=== PATIENT | female | born 1970 | race Caucasian/White ===

== ENCOUNTER → 2018-01-08 16:29 | Outpatient (CLI) | payer OTHER, SELFPAY | PROVIDERS: Family Provider Obstetrics & Gynecology Gynecology; PCP Obstetrics & Gynecology Gynecology; Visit Provider Nurse Practitioner Adult Health | DX: R82.90 Unspecified abnormal findings in urine (principal) | CPT/HCPCS: 87086; 87088 ==

== ENCOUNTER → 2018-01-09 16:31 | Outpatient (CLI) | payer OTHER, SELFPAY ==
--- NOTE | 2018-01-09 16:39 | US_ITS ---
STUDY: RENAL ULTRASOUND - COMPLETE REASON FOR EXAM: Female, 47 years old. Incomplete voiding TECHNIQUE: Ultrasound evaluation of the kidneys was performed with real-time and static badillo-scale imaging. COMPARISON: None. FINDINGS: RIGHT KIDNEY: Normal location of the right kidney, which is normal in size. The right kidney measures 10.5 x 5.4 x 4.5 cm. There is a normal cortex of the right kidney. The renal cortex measures 1.5 cm. There is no right renal mass or cyst. There are no right renal calculi. There is no right hydronephrosis. DISTAL RIGHT URETER: There is non-visualization of the distal right ureter. There is no demonstrated right ureterovesical junction calculus. There is a visualized right ureteral jet. LEFT KIDNEY: Normal location of the left kidney, which is normal in size. The left kidney measures 11.4 x 5.1 x 5.4 cm. There is a normal cortex of the left kidney. The renal cortex measures 1.3 cm. There is no left renal mass or cyst. There is a 6 mm calculus within the midpole of the left kidney. There is no left hydronephrosis. DISTAL LEFT URETER: There is non-visualization of the distal left ureter. There is no demonstrated left ureterovesical junction calculus. There is a visualized left ureteral jet. AORTA: Not imaged. I.V.C.: Not imaged. BLADDER: The distended urinary bladder has a volume of 102 ml. The empty urinary bladder has a volume of 41 ml. There is a normal wall thickness of the distended urinary bladder. There is no demonstrated mass within the urinary bladder. There are no demonstrated bladder calculi. US/Kidney and Bladder IMPRESSION: Small nonobstructing left renal calculus. Small post void residual of 41 mL. Electronically Signed: Kevon lOiva DO at 11:48 EDT Tel , Service support ,
== END ==
PROVIDERS: Family Provider Obstetrics & Gynecology Gynecology; PCP Obstetrics & Gynecology Gynecology; Visit Provider Nurse Practitioner Adult Health
DX: N20.0 Calculus of kidney (principal); N39.43 Post-void dribbling
CPT/HCPCS: 76770

== ENCOUNTER 2020-06-17 11:52 | Emergency (ER) | payer OTHER, SELFPAY ==
[2020-06-17 11:54] VITALS: BP 151/101; PULSE 73; RESP 16; TEMP 36.3; O2SAT 99; BMI 24.1
--- NOTE | 2020-06-17 11:57 | EKG12_ITS ---
Test Reason : CP Blood Pressure : / mmHG Vent. Rate : 085 BPM Atrial Rate : 085 BPM P-R Int : 152 ms QRS Dur : 086 ms QT Int : 406 ms P-R-T Axes : 067 056 042 degrees QTc Int : 483 ms Normal sinus rhythm Septal infarct , age undetermined Abnormal ECG Confirmed by TARA PECK, WAQAR ([id number]), editor managing director LEXI PALMA ([id number]) on 07/01/2020 9:36:42 A M Referred By: VENR/CE Confirmed By:JOSE PACHECO MD
[2020-06-17 12:06] VITALS: PULSE 89; RESP 16; O2SAT 97
[2020-06-17 12:11] LABS: Absolute Neutrophil Count 1.8 X10^3/uL (2.0-7.7); Basophil# 0.02 X10^3/uL; Basophil% 0.5 % (0-1); Eosinophil# 0.09 X10^3/uL; Eosinophils% 2.2 % (0-5); Hemoglobin 14.2 g/dL (12.0-15.0); Lymphocyte % 44.2 % (19-41); Mean Corpuscular Hgb 30.8 pg (27.0-32.0); Mean Corpuscular Volume 93.3 fL (81-99); Mean Platelet Vol. 9.2 fl (6.2-12.0); Monocyte# 0.38 X10^3/uL; Monocyte% 9.3 % (0-10); NRBC Flagged by Analyzer 0 % (0-5); Neutrophil # 1.78 X10^3/uL (2.7-7.7); Neutrophil % 43.8 % (47-70); Platelet Count 256 K/mm3 (150-450); RBC Distribution Width CV 11.9 % (11.6-14.6); RBC Distribution Width SD 41.1 fl (35.1-43.9); Red Blood Count 4.61 M/mm3 (4.2-5.4); White Blood Count 4.1 K/mm3 (4.4-11.0)
--- NOTE | 2020-06-17 12:13 | RAD_ITS ---
STUDY: X-RAY CHEST REASON FOR EXAM: Female, 50 years old. STERNAL CHEST PAIN FOR 1 WEEK TECHNIQUE: Single AP portable view of the chest. COMPARISON: None. FINDINGS: EKG electrodes are seen. The lungs are clear and expanded. There is no demonstrated pleural abnormality. Normal size heart. Normal mediastinum and royer. Normal visualized pulmonary arteries. Normal visualized aortic arch and descending thoracic aorta. Normal visualized thoracic spine. Normal visualized ribs, clavicles, and shoulders. Surgical clips are seen in the right upper quadrant most likely secondary to cholecystectomy. RAD/Chest 1 View (Portable) IMPRESSION: No acute abnormality is seen. Electronically Signed: Nir Crawley, at 12:36 EDT , Service support ,
--- NOTE | 2020-06-17 12:20 | ED.DCSUM_ITS ---
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 She is also had a prior cholecystectomy and a common bile duct stent. Patient states that she has had chest discomfort for approximately a week. Comes and goes. Is not associated with exertion. She is a runner and states she has felt fine running. No worsening chest pain. No worsening dyspnea. She ran several miles yesterday and said she had no problems. She she states the pain is worse sitting up or lying supine. No history of reflux. No melena. No abdominal pain. No fever or chills. No history of DVT or PE. No family history of clotting disorders. No recent travel, surgery or immobilization. No calf pain or swelling. The pain is not pleuritic. No hemoptysis. No pain radiating into her back. Pain was intermittent since about 9:00 last night it has been constant and she has now been having the pain more than 15 straight hours. Physical Examination: Well-appearing middle-aged female. Vital signs stable afebrile. Pulse ox 99% on room air no signs hypoxia. H EENT exam unremarkable. Neck nontender no lymphadenopathy. No JVD. Lungs clear to auscultation bilaterally. Heart regular rate and rhythm no murmur. Rate about 80. Chest wall nontender. Abdomen soft nontender normal bowel sounds no peritoneal signs. No reproducible epigastric or right upper quadrant tenderness. Extremities moves all 4. Calves nontender without edema or cords. Equal symmetrical radial pulses. Neurologically she is awake and alert with no focal motor deficits. Skin unremarkable. Back nontender. Test Results: EKG shows normal sinus rhythm rate of 85 but no acute signs of [place] or ischemia. Second EKG was done at 1:15 pm was a sinus bradycardia rate of 56 with no acute signs of [place] or ischemia nor any significant changes. CBC normal white count with a 4 hemoglobin 14. Chemistries normal. Normal creatinine and gap. Chest x-ray portable 1 view read both by myself and the radiologist shows no acute abnormality. Normal cardiac silhouette and mediastinum. Troponin normal. D-dimer normal at 0.29 Multiple repeat exams patient is doing well. She denies her went over all test results. Emergency Department Course and Treatment: Patient has atypical chest pain. Is not reproducible. Is not exertional. Worse supine and sitting upright. Given GI cocktail and Protonix. Differential include atypical cardiac presentation versus PE versus reflux versus other etiologies. Clinically does not appear to be a dissection. Treatment Plan: Given the patient's pain is nonexertional. She has a negative d-dimer and no risk factors for PE. She has no signs of dissection. And no signs of this being an acute cardiac etiology. Also that is worse laying flat or sitting upright she will be discharged to home. Outpatient follow-up with her primary care physician. She will be started on a proton pump inhibitor to see if it helps improve her symptoms thinking this may be GI in etiology. Disposition: Discharge Impression: Atypical chest pain of uncertain etiology This note was generated with [employer] dictation software. It may contain incorrect words, spelling, and punctuation that were not noted in review of the chart prior to signing ED Disposition - Plan for ED Patient: Disposition: Home or Assisted Living Instructions: ED Chest Pain Atypical Unkn Cause Prescriptions: Pantoprazole Sodium [Protonix] 40 mg PO DAILY #20 tab Prescription Printed Referrals: Ladonna Melton MD [Primary Care Provider] - 3-5 Days Additional Instructions: Follow-up with your doctor next week. All your tests today were negative including blood count, electrolytes, heart enzymes, no signs of a blood clot, 2 EKGs and your chest x-ray. We will start on the medication Protonix this may be secondary to esophagitis or reflux. Return emergency department if you are feeling worse.
[2020-06-17 12:27] LABS: Anion Gap 4 (5-15); BUN 16 mg/dL (7-18); BUN/Creat Ratio 18.5 RATIO (10-20); Calcium,Total 9.2 mg/dL (8.5-10.1); Chloride 105 mmol/L (98-107); Creatinine, Serum 0.87 mg/dL (0.55-1.02); EST Glomerular Filtration Rate 74 mL/min (>60); Est Glom Filt Rate - Afr Amer 89 mL/min (>60); Estimated Creatinine Clearance 69.61 ml/min; Glucose 92 mg/dL (74-106); Potassium 3.8 mmol/L (3.5-5.1); Sodium Level 138 mmol/L (136-145)
[2020-06-17] MEDS: Mag Hydrox/Al Hydrox/Simeth 30 ML UDC PO (12:35)
[2020-06-17 12:57] VITALS: BP 130/73; PULSE 64; RESP 12; O2SAT 97
--- NOTE | 2020-06-17 13:03 | EKG12_ITS ---
Test Reason : REPEAT Blood Pressure : / mmHG Vent. Rate : 056 BPM Atrial Rate : 056 BPM P-R Int : 150 ms QRS Dur : 086 ms QT Int : 468 ms P-R-T Axes : 061 046 046 degrees QTc Int : 451 ms Sinus bradycardia Otherwise normal ECG Confirmed by TARA PECK, WAQAR ([id number]), technical editor LEXI PALMA ([id number]) on 07/01/2020 9:36:55 A M Referred By: CE Confirmed By:JOSE PACHECO MD
[2020-06-17 13:42] LABS: D-Dimer Quantitative (DVT/PE) 0.29 FEU/ug/m (0.27-0.49)
--- NOTE | 2020-06-17 13:56 | ED.DEP ---
ED Disposition - Plan for ED Patient: Disposition: Home or Assisted Living Instructions: ED Chest Pain Atypical Unkn Cause Prescriptions: Pantoprazole Sodium [Protonix] 40 mg PO DAILY #20 tab Prescription Printed Referrals: Ladonna Melton MD [Primary Care Provider] - 3-5 Days Additional Instructions: Follow-up with your doctor next week. All your tests today were negative including blood count, electrolytes, heart enzymes, no signs of a blood clot, 2 EKGs and your chest x-ray. We will start on the medication Protonix this may be secondary to esophagitis or reflux. Return emergency department if you are feeling worse.
[2020-06-17 14:02] VITALS: PULSE 69; RESP 16; O2SAT 95
[2020-06-17 14:48] VITALS: BP 122/68; PULSE 64; RESP 16; O2SAT 98
== END 2020-06-17 14:48 | disposition home or self-care (01) ==
PROVIDERS: Emergency Provider Emergency Medicine; PCP Obstetrics & Gynecology Gynecology
DX: R07.9 Chest pain, unspecified (principal)
CPT/HCPCS: 36415; 71045; 80048; 84484; 85025; 85379; 93005; 96365; 99281; 99285; A4216

== ENCOUNTER 2021-04-18 08:45 | Emergency (ER) | payer OTHER, SELFPAY ==
[2021-04-18 08:48] VITALS: BP 165/107; PULSE 87; RESP 14; TEMP 35.7; O2SAT 98; BMI 25.9
[2021-04-18 09:00] VITALS: BMI 25.9
--- NOTE | 2021-04-18 09:14 | EX.ED.DYSGE1 ---
HPI History of Present Illness Chief Complaint: Neuro S/Sx Informant: patient and spouse/S.O. Onset/Context/Timing Onset: Days Context: Gradual Onset Timing: Waxes and wanes Current Severity: Mild Maximum Severity: Moderate Narrative Narrative: Patient present secondary to dizziness with pressure the back of her neck. Patient has a history of subarachnoid hemorrhage in 2005. This was secondary to what sounds like an AVM. No coiling or procedure was performed. Patient states 2 days ago she got up from the bathroom to go take some Tylenol and felt a burning sensation across the top of her head. She collapsed to the floor but did not lose consciousness. She reports having tingling in both arms. She was nauseated and vomited. states she sat on the floor for about 5 minutes and then was able to get up and go to bed. Since that time she is only complained of some pressure in the back of her neck. [facility] Medical History (Updated 04/18/21 @ 11:[address] Cassy Chen MD) GERD (gastroesophageal reflux disease) Hernia Subarachnoid hemorrhage Home Medications pantoprazole 40 mg PO DAILY #20 tab 06/17/20 [Rx Last Taken Unknown] Allergy/AdvReac Type Severity Reaction Status Date / Time acetaminophen [From Percocet] AdvReac Other Verified 04/18/21 08:48 oxycodone [From Percocet] AdvReac Other Verified 04/18/21 08:48 Surgical History (Updated 04/18/21 @ 09:53 by Sasha Rogel) History of cholecystectomy History of tonsillectomy and adenoidectomy Previous section Social History Smoking Status: Never smoker ROS ROS ED Constitutional Constitutional ED: Denies chills or fever(s) Eyes Eyes: Denies change in vision ENT ENT ED: Denies sore throat Cardiovascular Cardiovascular: Denies chest pain Respiratory/Chest Respiratory/Chest: Denies cough or dyspnea Gastrointestinal Gastrointestinal: Reports nausea and vomiting; Denies abdominal pain or diarrhea Genitourinary Genitourinary ED: Denies dysuria Musculoskeletal Musculoskeletal: Reports neck pain; Denies back pain Integumentary Denies rash Neurologic Neurologic: Reports paresthesias; Denies headache(s) or weakness Psychiatric Psychiatric: Denies anxiety or depression Allergic/Immunologic Allergic/Immunologic ED: Denies urticaria EXAM Physical Exam Const Vital Signs: 04/18/21 08:48 Temperature 96.3 F L Temperature Source Temporal Pulse Rate 87 Respiratory Rate 14 Blood Pressure 165/107 H Blood Pressure Mean 126 Pulse Ox 98 Oxygen Delivery Method Room Air Positive well nourished and well developed General Appearance ED: well developed HEENT Reports normocephalic and head/scalp atraumatic Eyes PERRL and EOMs intact bilaterally Neck supple Chest Wall inspection of chest normal and palpation of chest normal Resp normal respiratory effort and clear to auscultation bilaterally Cardio regular rate and regular rhythm GI normal to inspection, nondistended, normoactive bowel sounds Palpation: soft Extremity normal to inspection Neuro oriented x3 and no sensory deficits noted Sensorium / Orientation: alert Motor Exam: strength 5/5 throughout Psych mental status grossly normal Skin no rashes or lesions noted MDM MDM MDM Narrative Medical decision making narrative: Lab work and CTA of head and neck are obtained. Lab Data Labs: Laboratory Results - last 24 hr 04/18/21 04/18/21 09:40 09:40 WBC 4.5 RBC 4.49 Hgb 13.5 Hct 41.7 MCV 92.9 MCH 30.1 MCHC 32.4 RDW Std Deviation 40.5 RDW Coeff of Slick 11.9 Plt Count 281 MPV 9.0 Immature Gran % (Auto) 0.200 Neut % (Auto) 64.5 Lymph % (Auto) 25.4 [place] % (Auto) 8.2 Eos % (Auto) 1.3 Baso % (Auto) 0.4 Absolute Neuts (auto) 2.9 Absolute Lymphs (auto) 1.14 Nucleated RBC % 0 Sodium 139 Potassium 4.1 Chloride 105 Carbon Dioxide 27.0 Anion Gap 7 BUN 19 H Creatinine 0.75 Estim Creat Clear Calc 70.19 Est GFR (MDRD) Af Amer 104 Est GFR (MDRD) Non-Af 86 BUN/Creatinine Ratio 25.2 H Glucose 94 Calcium 9.6 Radiography Diagnostic Testing: Radiology Impression Head/Neck CTA 04/18/21 10:10 IMPRESSION: Normal CTA Head and neck with contrast. Electronically Signed: Nir Crawley MD at 10:30 EDT , Service support , Treatment and Re-Evaluation Comments:: Test results are unremarkable discussed with patient and at bedside. Patient had bilateral upper extremity paresthesias with lightheadedness, nausea, and vomiting. I believe she likely had a vasovagal near syncopal episode. She is reassured with the findings here and will follow up with her PCP as needed. Discharge Plan Triage Chief Complaint: Neuro S/Sx ED Provider: Cassy Chen Dx/Rx/DC Orders Clinical Impression: Near syncope Instructions: ED Near-Fainting- Vagal Reaction Prescriptions: No Action pantoprazole 40 MG tablet 40 mg PO DAILY Qty: 20 RF: 0 Primary Care Provider: Ladonna Melton Referrals: Ladonna Melton MD [Primary Care Provider] - As Needed Disposition Disposition: Home, Self Care
[2021-04-18 09:46] LABS: Absolute Lymphocyte Count 1.14 X10^3/uL (0.83-4.51); Absolute Neutrophil Count 2.9 X10^3/uL (2.0-7.7); Basophil# 0.02 X10^3/uL; Basophil% 0.4 % (0-1); Eosinophil# 0.06 X10^3/uL; Eosinophils% 1.3 % (0-5); Hematocrit 41.7 % (37-47); Hemoglobin 13.5 g/dL (12.0-15.0); Lymphocyte # 1.14 X10^3/ul (0.83-4.51); Lymphocyte % 25.4 % (19-41); Mean Corp Hgb Conc 32.4 g/dL (32-36); Mean Corpuscular Hgb 30.1 pg (27.0-32.0); Mean Corpuscular Volume 92.9 fL (81-99); Monocyte# 0.37 X10^3/uL; Monocyte% 8.2 % (0-10); NRBC Flagged by Analyzer 0 % (0-5); Neutrophil # 2.89 X10^3/uL (2.7-7.7); Neutrophil % 64.5 % (47-70); Platelet Count 281 K/mm3 (150-450); RBC Distribution Width CV 11.9 % (11.6-14.6); RBC Distribution Width SD 40.5 fl (35.1-43.9); Red Blood Count 4.49 M/mm3 (4.2-5.4); White Blood Count 4.5 K/mm3 (4.4-11.0)
[2021-04-18 09:58] LABS: Anion Gap 7 (5-15); BUN 19 mg/dL (7-18); BUN/Creat Ratio 25.2 RATIO (10-20); Calcium,Total 9.6 mg/dL (8.5-10.1); Chloride 105 mmol/L (98-107); Creatinine, Serum 0.75 mg/dL (0.55-1.02); EST Glomerular Filtration Rate 86 mL/min (>60); Est Glom Filt Rate - Afr Amer 104 mL/min (>60); Estimated Creatinine Clearance 70.19 ml/min; Glucose 94 mg/dL (74-106); Potassium 4.1 mmol/L (3.5-5.1); Sodium Level 139 mmol/L (136-145)
--- NOTE | 2021-04-18 10:10 | CT_ITS ---
STUDY: CTA HEAD AND NECK WITH CONTRAST REASON FOR EXAM: Female, 51 years old. Headache -- H/O SAH RADIATION DOSAGE (If Supplied By Facility): CTDIvol = ( 27.74 ) mGy, DLP = ( 1455.93 ) mGycm TECHNIQUE: CT angiography was performed with a multi-detector CT scanner. Data acquisition was obtained from the skull base through the vertex following intravenous administration of IV 100mL Isovue-370. MIP images were reconstructed from the axial data set. Post-processing of the angiographic images was performed, with multiplanar reformation and 3D reconstruction. Individualized dose optimization techniques were used for this CT. COMPARISON: No relevant priors. FINDINGS: Normal bilateral petrous carotid arteries. There is calcified plaque formation of the right cavernous carotid artery, without a cross-sectional luminal stenosis. There is calcified plaque formation of the left cavernous carotid artery, without a cross-sectional luminal stenosis. Normal right A1 segments of the anterior cerebral artery. Normal left A1 segments of the anterior cerebral artery. Normal intact anterior communicating artery (ACOM). Normal bilateral A2 segments of the anterior cerebral arteries. Normal right M1 and M2 segments of the middle cerebral arteries, with a normal M1 bifurcation. Normal left M1 and M2 segments of the middle cerebral arteries, with a normal M1 bifurcation. Normal right posterior communicating artery (PCOM). Normal left posterior communicating artery (PCOM). Normal bilateral vertebral arteries. Normal basilar artery with a normal basilar bifurcation. The visualized bilateral superior cerebellar (SCA) arteries are normal. Normal bilateral P1, P2 and visualized P3 segments of the posterior cerebral arteries. There is no demonstrated aneurysm of the [place] of [place]. There is no demonstrated abnormality of the visualized brain. AORTIC ARCH: Normal visualized aortic arch. Normal origins of the brachiocephalic, left common carotid, and left subclavian arteries. RIGHT CAROTID ARTERIES: Normal right common carotid artery (CCA). Normal right common carotid bulb. Normal origin of the right internal carotid (ICA) artery without a hemodynamically significant stenosis. Normal visualized cervical portion of the right internal carotid artery. Normal origin of the right external carotid artery (ECA). LEFT CAROTID ARTERIES: Normal left common carotid artery (CCA). Normal left common carotid bulb. Normal origin of the left internal carotid (ICA) artery without a hemodynamically significant stenosis. Normal visualized cervical portion of the left internal carotid artery. Normal origin of the left external carotid artery (ECA). VERTEBRAL ARTERIES: Normal bilateral vertebral arteries. CT/CTA Head AND Neck W/ Contrast IMPRESSION: Normal CTA Head and neck with contrast. Electronically Signed: Nir Crawley MD at 10:30 EDT , Service support ,
[2021-04-18 11:20] VITALS: BP 139/84; PULSE 60; RESP 16; O2SAT 98
--- NOTE | 2021-04-18 11:21 | ED.RN ---
REVIEWED D/C INSTRUCTIONS, FOLLOW UP CARE, AND S/S THAT WOULD WARRANT A RETURN TO THE ED WITH PT. PT VERBALIZED AN UNDERSTANDING AND DENIES FURTHER QUESTIONS FOR THIS RN. PT SKIN P/W/D, RESP EVEN AND UNLABORED, PT A&O X 3, NO DISTRESS NOTED. PT AMBULATED OUT OF ED, GAIT STEADY.
== END 2021-04-18 11:23 | disposition home or self-care (01) ==
PROVIDERS: Emergency Provider Emergency Medicine; PCP Obstetrics & Gynecology Gynecology
DX: R55 Syncope and collapse (principal); R20.2 Paresthesia of skin; R11.2 Nausea with vomiting, unspecified; K21.9 Gastro-esophageal reflux disease without esophagitis
CPT/HCPCS: 70496; 70498; 80048; 85025; 99283; Q9967; A4216

== ENCOUNTER → 2021-04-26 11:38 | Outpatient (CLI) | payer OTHER, SELFPAY ==
--- NOTE | 2021-04-26 11:50 | CDU_ITS ---
Reason For Study: TIA Rt. Velocities/BP Lt. Velocities/BP Prox CCA 86.5/26.5 cm/sec. Prox CCA 115.2/33 cm/sec. Mid CCA 82.6/27.8 cm/sec. Mid CCA 95.6/30.4 cm/sec. Dist CCA 86.5/27.8 cm/sec. Dist CCA 81.2/26.5 cm/sec. Prox ICA 63/17.3 cm/sec. Prox ICA 61.7/16 cm/sec. Mid ICA 82.6/42.1 cm/sec. Mid ICA 78.6/35.6 cm/sec. Dist ICA 99.5/40.8 cm/sec. Dist ICA 85.2/40.8 cm/sec. Rt. ICA/CCA = 1.2. Lt. ICA/CCA = 0.9. Prox ECA 63/16 cm/sec. Prox ECA 77.3/17.3 cm/sec. Rt. Vert. 48.6/17.3 cm/sec. Lt. Vert. 43.7/16.3 cm/sec. Right Extracranial There is intimal thickening but no significant atherosclerotic plaque noted in the right common carotid artery. There is heterogeneous, irregular atherosclerotic plaque noted in the right internal carotid artery. There is intimal thickening but no significant atherosclerotic plaque noted in the right external carotid artery. Antegrade flow is noted in the right vertebral artery. Left Extracranial There is intimal thickening but no significant atherosclerotic plaque noted in the left common carotid artery. There is intimal thickening but no significant atherosclerotic plaque noted in the left internal carotid artery. There is intimal thickening but no significant atherosclerotic plaque noted in the left external carotid artery. Antegrade flow is noted in the left vertebral artery. Procedure Carotid Duplex [id number]. This is a Carotid Duplex examination using B-mode, color flow and specral Doppler. Exam performed in department. VL/Carotid Duplex Ultrasound Interpretation Summary Mild irregular plaque in the proximal right internal carotid artery with less t morse 50% stenosis. Less than 50% stenosis right external carotid artery Intimal thickening of the left proximal internal carotid artery with less than 50% stenosis Less than 50% stenosis left external carotid artery Patent and antegrade vertebral arteries bilaterally Ordering Physician: Ladonna Melton Referring Physician: Ladonna Melton Performed By: Divya Alvarez RVT
[2021-04-26 12:58] LABS: Cholesterol 204 mg/dL (200); High Density Lipoprotein 69 mg/dL; Triglycerides 56 mg/dL; Very Low Density Lipoprotein 11 mg/dL (5-40)
== END ==
PROVIDERS: PCP Obstetrics & Gynecology Gynecology; Referring Provider Obstetrics & Gynecology Gynecology; Visit Provider Obstetrics & Gynecology Gynecology
DX: I65.23 Occlusion and stenosis of bilateral carotid arteries (principal)
CPT/HCPCS: 36415; 80061; 93005; 93880

== ENCOUNTER 2021-11-15 07:18 | Outpatient (CLI) | payer OTHER, SELFPAY ==
--- NOTE | 2021-11-15 07:20 | BI_ITS ---
MAMMOGRAPHY - BILATERAL SCREENING 3-D TOMOSYNTHESIS REASON FOR EXAM: Female, 51 years old. SCREENING PERTINENT HISTORY: No significant family history. TECHNIQUE: 2-D mammograms and 3-D Tomosynthesis of the breast (s) were performed. CAD was performed. COMPARISON: None. FINDINGS: The breast composition is composed of scattered fibroglandular density. Scattered benign calcifications are seen. No dense spiculated masses or suspicious microcalcifications are identified. No architectural distortion is identified. There is no skin thickening or retraction. There has been no significant change since the prior study. BI/SCRN MAMM (CAD)W/CHEIKH BILAT IMPRESSION: No mammographic signs of malignancy. Routine yearly mammograms recommended. ASSESSMENT CATEGORY: BIRADS Category 1: Negative. A letter regarding these results will be sent to the patient by the facility within 30 days. FOLLOW UP RECOMMENDATION: Yearly follow up mammogram recommended. (A) Approximately 10% of breast cancers are not detected by mammography. A normal mammogram should not delay biopsy of a clinically suspicious abnormality. Electronically Signed: Marcel Roman MD at 16:33 EDT ,
== END 2021-11-15 23:59 | disposition home or self-care (01) ==
LOC: OPBI 07:18
PROVIDERS: PCP Obstetrics & Gynecology Gynecology; Visit Provider Obstetrics & Gynecology Gynecology
DX: Z12.31 Encounter for screening mammogram for malignant neoplasm of breast (principal)
CPT/HCPCS: 77063; 77067

== ENCOUNTER → 2022-11-21 | Outpatient (CLI) | payer OTHER, SELFPAY ==
--- NOTE | 2022-11-21 12:59 | BI_ITS ---
MAMMOGRAPHY - BILATERAL SCREENING REASON FOR EXAM: Female, 52 years old. Routine annual screening examination. PERTINENT HISTORY: Non-contributory. TECHNIQUE: Digital bilateral breast cheikh (3D mammographic acquisition) in the CC and MLO projections. 2-D mediolateral oblique (MLO) and craniocaudad (CC) views of both breasts were obtained. CAD: Full Field Digital Mammography with Computer Added Detection was performed. COMPARISON: Comparison is made with prior examination dated November 15, 2021. FINDINGS: Breast Composition: There are scattered areas of fibroglandular density. There are no dominant masses or suspicious calcifications. No other significant abnormalities are identified. There has been no significant change since the prior study. BI/SCRN MAMM (CAD)W/CHEIKH BILAT IMPRESSION: Stable bilateral screening mammogram. Yearly follow-up mammogram recommended. (A) ASSESSMENT CATEGORY: BIRADS Category 1: Negative. A letter regarding these results will be sent to the patient by the facility within 30 days. Approximately 10% of breast cancers are not detected by mammography. A normal mammogram should not delay biopsy of a clinically suspicious abnormality. [id number] Electronically Signed: Nir Crawley MD at 14:24 EDT ,
== END | disposition home or self-care (01) ==
LOC: OPBI 12:57
PROVIDERS: PCP Obstetrics & Gynecology Gynecology; Referring Provider Obstetrics & Gynecology Gynecology; Visit Provider Obstetrics & Gynecology Gynecology
DX: Z12.31 Encounter for screening mammogram for malignant neoplasm of breast (principal)
CPT/HCPCS: 77063; 77067

== ENCOUNTER → 2024-03-11 | Outpatient (CLI) | payer OTHER, SELFPAY ==
--- NOTE | 2024-03-11 16:15 | BI_ITS ---
MAMMOGRAPHY - BILATERAL SCREENING REASON FOR EXAM: Female, 53 years old. Routine annual screening examination. PERTINENT HISTORY: Non-contributory. TECHNIQUE: Digital bilateral breast cheikh (3D mammographic acquisition) in the CC and MLO projections. 2-D mediolateral oblique (MLO) and craniocaudad (CC) views of both breasts were obtained. CAD: Full Field Digital Mammography with Computer Added Detection was performed. COMPARISON: Comparison is made with prior study dated November 21, 2022 and November 15, 2021. FINDINGS: Breast Composition: There are scattered areas of fibroglandular density. There are no dominant masses or suspicious calcifications. No other significant abnormalities are identified. There has been no significant change since the prior study. BI/SCRN MAMM (CAD)W/CHEIKH BILAT IMPRESSION: Stable bilateral screening mammogram. Yearly follow-up mammogram recommended. (A) ASSESSMENT CATEGORY: BIRADS Category 1: Negative. A letter regarding these results will be sent to the patient by the facility within 30 days. Approximately 10% of breast cancers are not detected by mammography. A normal mammogram should not delay biopsy of a clinically suspicious abnormality. [id number] Electronically Signed: Nir Crawley MD at 8:20 EDT ,
== END | disposition home or self-care (01) ==
LOC: OPBI 16:12
PROVIDERS: PCP Obstetrics & Gynecology Gynecology; Referring Provider Obstetrics & Gynecology Gynecology; Visit Provider Obstetrics & Gynecology Gynecology
DX: Z12.31 Encounter for screening mammogram for malignant neoplasm of breast (principal)
CPT/HCPCS: 77063; 77067

== ENCOUNTER → 2025-02-12 | Outpatient (CLI) | payer OTHER, SELFPAY ==
--- NOTE | 2025-02-12 15:02 | BD_ITS ---
PROCEDURE: DEXA BONE DENSITY STUDY 02/12/2025 REASON FOR EXAM: F, age 54 y/o . Postmenopausal. TECHNIQUE: DXA scan of sites with data reported below. REFERENCE LINKS: ISCD Adult Positions COMPARISON: None FINDINGS: BMD and T-SCORES Lumbar spine: 1.109 g/cm2, T-score 0.6 Levels: L1 through L4 Left femoral neck: 0.900 g/cm2, T-score 0.5 Femoral neck comparison data not recommended for monitoring change. Left total hip: 1.036 g/cm2, T-score 0.8 Right femoral neck: 0.808 g/cm2, T-score -0.4 Femoral neck comparison data not recommended for monitoring change. Right total hip: 0.949 g/cm2, T-score 0.1 The World Health Organization has defined the following categories based on bone density: Normal bone density: T-score equal to or greater than -1.0 Osteopenia: T-score between -1.0 and -2.5 Osteoporosis: T-score equal to or less than -2.5 The patient does not meet the pharmacological treatment recommendations for prevention of osteoporosis. BD/Dexa Bone Density Study IMPRESSION: NORMAL T-SCORES. Recommend follow-up as clinically warranted. Reading Location: [facility]
--- NOTE | 2025-02-12 15:02 | BI_ITS ---
EXAM: SCRN MAMM (CAD)W/CHEIKH BILAT DATE: 02/12/2025 CLINICAL HISTORY: F, Age 54 y/o , SCREENING BREAST CANCER RISK ASSESSMENT: Na TECHNIQUE: Bilateral screening digital breast tomosynthesis with 2D and 3D images. Computer aided detection. COMPARISON: Prior exam(s) were compared FINDINGS: TISSUE DENSITY: The breast tissue is heterogenously dense, which may obscure small masses. Bilateral Breast Mammographic Findings: No suspicious masses, calcifications or other abnormalities are identified. BI/SCRN MAMM (CAD)W/CHEIKH BILAT IMPRESSION: OVERALL FINAL ASSESSMENT: BIRADS 1 NEGATIVE RECOMMENDATION: Routine annual follow-up in 1 Year A letter with findings and recommendations will be mailed to the patient. Reading Location: [id number]
== END | disposition home or self-care (01) ==
LOC: OPBD 15:00
PROVIDERS: PCP Obstetrics & Gynecology Gynecology; Referring Provider Obstetrics & Gynecology Gynecology; Visit Provider Obstetrics & Gynecology Gynecology
DX: Z12.31 Encounter for screening mammogram for malignant neoplasm of breast (principal); Z78.0 Asymptomatic menopausal state
CPT/HCPCS: 77063; 77067; 77080

== ENCOUNTER → 2025-05-07 | Outpatient (CLI) | payer OTHER, SELFPAY ==
--- NOTE | 2025-05-07 09:55 | CDU_ITS ---
Reason For Study Reason For Study: Carotid Stenosis Rt. Velocities/BP Lt. Velocities/BP Prox CCA 86.7/27.8 cm/sec. Prox CCA 91.6/22.8 cm/sec. Mid CCA 105.2/35.8 cm/sec. Mid CCA 108.9/32.1 cm/sec. Dist CCA 84.2/33.9 cm/sec. Dist CCA 75.6/27.8 cm/sec. Prox ICA 72.0/31.4 cm/sec. Prox ICA 61.4/26.3 cm/sec. Mid ICA 49.4/21.5 cm/sec. Mid ICA 70.9/32.5 cm/sec. Dist ICA 45.0/24.9 cm/sec. Dist ICA 57.2/28.0 cm/sec. Rt. ICA/CCA = 0.68. Lt. ICA/CCA = 0.65. Prox ECA 81.5/17.5 cm/sec. Prox ECA 51.8/9.9 cm/sec. Rt. Vert. 41.7/16.1 cm/sec. Lt. Vert. 36.7/13.9 cm/sec. Right Extracranial There is intimal thickening but no significant atherosclerotic plaque noted in the right common carotid artery. There is heterogeneous, irregular atherosclerotic plaque noted in the right internal carotid artery. There is intimal thickening but no significant atherosclerotic plaque noted in the right external carotid artery. Antegrade flow is noted in the right vertebral artery. Left Extracranial There is intimal thickening but no significant atherosclerotic plaque noted in the left common carotid artery. There is homogeneous, smooth atherosclerotic plaque noted in the left internal carotid artery. There is intimal thickening but no significant atherosclerotic plaque noted in the left external carotid artery. Antegrade flow is noted in the left vertebral artery. Procedure Carotid Duplex 54309. This is a Carotid Duplex examination using B-mode, color flow and specral Doppler. Exam performed in department. VL/Carotid Duplex Ultrasound Interpretation Summary Mild (<50%) stenosis right extracranial internal carotid. Mild (<50%) stenosis left extracranial internal carotid. Flow within the vertebral arteries is antegrade bilaterally. Ordering Physician: Ladonna Melton Referring Physician: Ladonna Melton Performed By: Divya Alvarez RVT and Student
== END | disposition home or self-care (01) ==
PROVIDERS: PCP Obstetrics & Gynecology Gynecology; Referring Provider Obstetrics & Gynecology Gynecology; Visit Provider Obstetrics & Gynecology Gynecology
DX: I65.23 Occlusion and stenosis of bilateral carotid arteries (principal)
CPT/HCPCS: 93880

== ENCOUNTER → 2025-05-11 | Outpatient (CLI) | payer OTHER, SELFPAY ==
[2025-05-11 12:24] LABS: Hematocrit 39.2 % (37-47); Hemoglobin 13.4 g/dL (12.0-15.0); Immature Granulocytes Count 0.030 X10^3/uL (0.0-0.0); Mean Corp Hgb Conc 34.2 g/dL (32-36); Mean Corpuscular Volume 88.9 fL (81-99); Mean Platelet Vol. 9.1 fl (6.2-12.0); NRBC Flagged by Analyzer 0 % (0-5); Platelet Count 272 K/mm3 (150-450); RBC Distribution Width CV 11.9 % (11.6-14.6); RBC Distribution Width SD 38.5 fl (35.1-43.9); Red Blood Count 4.41 M/mm3 (4.2-5.4); White Blood Count 5.6 K/mm3 (4.4-11.0)
[2025-05-11 12:55] LABS: AST(SGOT) 30 U/L (<=31); Alanine Aminotransfer ALT/SGPT 39 U/L (<=34); Albumin, Serum 4.2 g/dL (3.5-5.0); Alkaline Phosphatase 127 U/L (35-104); Amylase 42 U/L (28-100); Anion Gap 14 (5-15); BUN 11 mg/dL (4-19); BUN/Creat Ratio 15.9 RATIO (10-20); Calcium,Total 9.2 mg/dL (7.6-11.0); Carbon Dioxide 21.3 mmol/L (21.0-32.0); Chloride 100 mmol/L (98-108); Globulin 3.0 g/dL (2.2-4.2); Glucose 88 mg/dL (70-99); Lipase 14 U/L (13-75); Potassium 4.1 mmol/L (3.3-5.1)
--- OUTSIDE RECORDS SUMMARY | 2025-05-11 20:23 | XMS RPT_ITS | CCD ---
Author Organization [facility] Care Team Providers Care Escrow Manager Name Role Phone MERLIN AGUDELO DO Attending Unavailable MERLIN AGUDELO DO Primary Care Unavailable MERLIN AGUDELO DO Admitting Unavailable RicePatriciaLadonna Benja Primary Care Provider [phone] LADONNA MCKINNON Referring Unavailab le LADONNA MELTON Primary Care Unavailable Geronimo PECK, Dr. Dougherty Primary Care Provider Geronimo PECK, Dr. Dougherty Attending Provider [phone] Geronimo PECK, Dr. Dougherty Referring Provider Ladonna Melton Referring Unavailable RiceLadonna Attending Unavailable Rice Ladonna Primary Care Unavailable Rice Ladonna Primary Care Unavailable Rice, Ladonna Referring Unavailable Rice, Ladonna Attending Unavailable Allergies Allergy Classification Reported Allergen(s) Allergy Type Date of Onset Reaction(s) Facility (2 sources) Acetaminophen Drug Allergy 1 Other [facility] Comment on above: [facility] (2 sources) oxyCODONE Drug Allergy 1 [facility] Comment on above: [facility] (1 source) OTHER; Translations: [OTHER] Propensity to adverse reactions (disorder) 3 [facility] Repository (1 source) Acetaminophen Drug Allergy 1 [facility] Repository (1 source) oxyCODONE Drug Allergy 1 [facility] Repository Medications Current Medications Medication Drug Class(es) Dates Sig (Normalized) Sig (Original) amino acid Powder (2 sources) Start: 06-15-2021 amino acid Powder Active PO June 15, 2021 12:00am Apple Cider Vinegar (2 sources) Start: 06-15-2021 Apple Cider Vinegar Active PO TWICE A DAY June 15, 2021 12:00am Ascorbic Mhsy-Kyzrnulc-Fbc (Emergen-C) 1,000 mg powder effervescent in packet (2 sources) Start: 06-15-2021 Ascorbic Qggg-Poywujcz-Pwx (Emergen-C) 1,000 mg powder effervescent in packet Active 1 NMA PO DAILY June 15, 2021 12:00am Start: 06-15-2021 Ascorbic Acid- Multivit-Min (Emergen-C) 1,000 mg powder effervescent in packet Active 1 EACH PO DAILY June 15, 2021 12:00am Burn X-T (2 sources) Start: 06-15-2021 Burn X-T Active PO June 15, 2021 12:00am CLA (1 source) Start: 06-15-2021 CLA Active PO June 15, 2021 12:00am CLA 780 mg (1 source) Start: 06-15-2021 CLA 780 mg Active PO June 15, 2021 12:00am Collagen (2 sources) Start: 06-15-2021 collagen Active PO June 15, 2021 12:00am cyclobenzaprine hydrochloride 10 mg oral tablet (1 source) Muscle Relaxant Start: 08-06-2015 take 1 tablet by mouth every eight hours as needed for muscle spasms cyclobenzaprine (FLEXERIL) 10 mg tablet Indications: Muscle spasm of back Take 1 tablet by mouth every 8 hours as needed for Muscle Spasm. 10 tablet 0 08/06/2015 Active Elderberry Fruit-Honey (1 source) Start: 06-15-2021 take 1 mL by mouth once daily Elderberry Fruit-Honey Active 30 ML PO DAILY June 15, 2021 12:00am Elderberry Fruit-Honey 0.7-3 gram/7.5 mL liquid (1 source) Start: 06-15-2021 take 1 mL by mouth once daily Elderberry Fruit-Honey 0.7-3 gram/7.5 mL liquid Active 30 mL PO DAILY June 15, 2021 12:00am Ethinyl Estradiol / Levonorgestrel (1 source) Progestin, Estrogen, Progestin-containi ng Intrauterine Device take 1 tablet by mouth once daily L-Norgest and E Estradiol-E Estrad (SEASONIQUE) 0.15 mg-30 mcg (84)/10 mcg (7) 3MPk Take 1 tablet by mouth once daily. Active ibuprofen 600 mg oral tablet (1 source) Nonsteroidal Anti-inflammatory Drug Start: 09-26-2002 MOTRIN 600MG TABLET prn 0 09/26/2002 Active magnesium glycinate 100 mg oral tablet (2 sources) Start: 06-15-2021 Magnesium Glycinate 100 mg tablet Active 200 mg PO DAILY June 15, 2021 12:00am Start: 06-15-2021 take 200 mg by mouth once derrick y Magnesium Glycinate Active 200 MG PO DAILY June 15, 2021 12:00am Esenm-2p-Djs-Epa-Fish Oil-D3 (Coplay-3 + Vitamin D3) 150-500-200 mg-mg-unit capsule,delayed release(DR/EC) (2 sources) Start: 06-15-2021 Depfl-1u-Jne-E pa-Fish Oil-D3 (Coplay-3 + Vitamin D3) 150-500-200 mg-mg-unit capsule,delayed release(DR/EC) Active NMA PO June 15, 2021 12:00am Start: 06-15-2021 Uabff-2x-Iir-E pa-Fish Oil-D3 (Coplay-3 + Vitamin D3) 150-500-200 mg-mg-unit capsule,delayed release(DR/EC) Active CAP PO June 15, 2021 12:00am Turmeric Carolyn Tea (2 sources) Start: 06-15-2021 Turmeric Ginge r Tea Active PO June 15, 2021 12:00am Completed/Discontinued Medications Medication Drug Class(es) Dates Sig (Normalized) Sig (Original) aspirin 81 mg delayed release oral tablet (2 sources) Platelet Aggregation Inhibitor, Nonsteroidal Anti-inflammatory Drug Start: 06-15-2021 End: 06-15-2021 take 1 tablet by mouth once daily Aspirin (Adult Aspirin Regimen) 81 mg tablet,delayed release (DR/EC) Discontinued 81 mg PO DAILY June 15, 2021 12:00am June 15, 2021 3:41pm pantoprazole 40 mg delayed release oral tablet (2 sources) Proton Pump Inhibitor Start: 06-17-2020 End: 06-15-2021 take 1 tablet by mouth once daily Pantoprazole 40 MG tablet Discontinued 40 mg PO DAILY June 17, 2020 12:00am June 15, 2021 3:01pm Problems Problem Classification Problem Date Documented Da te Episodic/Chronic Biliary tract disease (1 source) Cholangitis; Translations: [Other cholangitis] Onset: 09-26-2002 03-13-2024 Chronic Cardiac and circulatory congenital anomalies (2 sources) Vascular disorder; 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, site unspecified] 06-15-2021 Chronic Occlusion or stenosis of precerebral arteries (1 source) Occlusion and stenosis of bilateral carotid arteries; Translations: [Occlusion and stenosis of bilateral carotid arteries] Onset: 05-07-2025 Chronic Other screening for suspected conditions (not mental disorders or infectious disease) (1 source) Encounter for screening mammogram for malignant neoplasm of breast; Translations: [Encounter for screening mammogram for malignant neoplasm of breast] Onset: 02-18-2025 Episodic Syncope (2 sources) Near syncope; Translations: [Syncope and collapse] 04-18-2021 Episodic Results Test Name Value Interpretation Reference Range Facil ity Carotid Duplex Ultrasoundon 05-07-2025 Carotid Duplex Ultrasound [facility] Cardi[facility] Services [address] [place] [address] Carotid Duplex Ultrasound 05/07/25 1002 MR#: [id number] Acct: [id number] Name: DEYSI ANAYA ROQUE Rep #: [id number] : 1970 55 From: Abebe Maza MD Attending Dr: Dr. Ladonna Melton MD Status: CONOR SHERMAN Ordering Dr: Ladonna Melton MD Date: 05/07/25 Location: [facility] Sex: F C Admitted: Reason For Study Reason For Study: Carotid Stenosis Rt. Velocities/BP Lt. Velocities/BP Prox CCA 86.7/27.8 cm/sec. Prox CCA 91.6/22.8 cm/sec. Mid CCA 105.2/35.8 cm/sec. Mid CCA 108.9/32.1 cm/sec. Dist CCA 84.2/33.9 cm/sec. Dist CCA 75.6/27.8 cm/sec. Prox ICA 72.0/31.4 cm/sec. Prox ICA 61.4/26.3 cm/sec. Mid ICA 49.4/21.5 cm/sec. Mid ICA 70.9/32.5 cm/sec. Dist ICA 45.0/24.9 cm/sec. Dist ICA 57.2/28.0 cm/sec. Rt. ICA/CCA = 0.68. Lt. ICA/CCA = 0.65. Prox ECA 81.5/17.5 cm/sec. Prox ECA 51.8/9.9 cm/sec. Rt. Vert. 41.7/16.1 cm/sec. Lt. Vert. 36.7/13.9 cm/sec. Right Extracranial There is intimal thickening but no significant atherosclerotic plaque noted in the right common carotid artery. There is heterogeneous, irregular atherosclerotic plaque noted in the right internal carotid artery. There is intimal thickening but no significant atherosclerotic plaque noted in the right external carotid artery. Antegrade flow is noted in the right vertebral artery. Left Extracranial There is intimal thickening but no significant atherosclerotic plaque noted in the left common carotid artery. There is homogeneous, smooth atherosclerotic plaque noted in the left internal carotid artery. There is intimal thickening but no significant atherosclerotic plaque noted in the left external carotid artery. Antegrade flow is noted in the left vertebral artery. Procedure Carotid Duplex [id number]. This is a Carotid Duplex examination using B-mode, color flow and specral Doppler. Exam performed in department. VL/Carotid Duplex Ultrasound Interpretation Summary Mild (<50%) stenosis right extracranial internal carotid. Mild (<50%) stenosis left extracranial internal carotid. Flow within the vertebral arteries is antegrade bilaterally. Ordering Physician: Ladonna Melton Referring Physician: Ladonna Melton Performed By: Divya Alvarez RVT and Student 05/07/252034 Date Abebe Maza MD CC: Dr. Ladonna Melton MD Date Dictated: 05/07/25 1002 Date Transcribed: 05/07/252034 Hvac Sales Engineer: Signed Normal [facility] Bone density reportOrdered B y: Nir Crawley on 02-13-2025 Study report Skeletal system DXA [facility] Imaging Services [address] [place] [address] Dexa Bone Density Study MR#: [id number] Acct: [id number] Name: DEYSI ANAYA Rep #: [id number] : 1970 F 54 From: Alvin Crawley MD PCP: Dr. Ladonna Melton MD Status: REG CL I Study:Dexa Bone Density Study Date of Exam: 02/12/25 Exam# [id number] Ordering Dr: Patricia Melton MD PROCEDURE: DEXA BONE DENSITY STUDY 02/12/2025 REASON FOR EXAM: F, age 54 y/o . Postmenopausal. TECHNIQUE: DXA scan of sites with data reported below. REFERENCE LINKS: ISCD Adult Positions COMPARISON: None FINDINGS: BMD and T-SCORES Lumbar spine: 1.109 g/cm2, T-score 0.6 Levels: L1 through L4 Left femoral neck: 0.900 g/cm2, T-score 0.5 Femoral neck comparison data not recommended for monitoring change. Left total hip: 1.036 g/cm2, T-score 0.8 Right femoral neck: 0.808 g/cm2, T-score -0.4 Femoral neck comparison data not recommended for monitoring change. Right total hip: 0.949 g/cm2, T-score 0.1 The World Health Organization has defined the following categories based on bonedensity: Normal bone density: T-score equal to or greater than -1.0 Osteopenia: T-score between -1.0 and -2.5 Osteoporosis: T-score equal to or less than -2.5 The patient does not meet the pharmacological treatment recommendations for prevention of osteoporosis. BD/Dexa Bone Density Study IMPRESSION: NORMAL T-SCORES. Recommend follow-up as clinically warranted. Reading Location: [facility] CC: Dr. Ladonna Melton MD ~ Hvac Sales Engineer: Signed [facility] Breast imaging reportOrdered By: Delores Lazar on 02-12-2025 Study report [facility] Imaging Services [address] [place] [address] SCRN MAMM (CAD)W/CHEIKH BILAT MR#: [id number] Acct: [id number] Name: DEYSI ANAYA Rep #: [id number] : 1970 F 54 From: Praneeth Carlisle MD PCP: Dr. Ladonna Melton MD Status: REG CL I Study:SCRN MAMM (CAD)W/CHEIKH BILAT Date of Exa m: 02/12/25 Exam# [id number] Ordering Dr: Patricia Melton MD EXAM: SCRN MAMM (CAD)W/CHEIKH BILAT DATE: 02/12/2025 CLINICAL HISTORY: F, Age 54 y/o , SCREENING BREAST CANCER RISK ASSESSMENT: Na TECHNIQUE: Bilateral screening digital breast tomosynthesis with 2D and 3D images. Computeraided detection. COMPARISON: Prior exam(s) were compared FINDINGS: TISSUE DENSITY: The breast tissue is heterogenously dense, which may obscure small masses. Bilateral Breast Mammographic Findings: No suspicious masses, calcifications or other abnormalities are identified. BI/SCRN MAMM (CAD)W/CHEIKH BILAT IMPRESSION: OVERALL FINAL ASSESSMENT: BIRADS 1 NEGATIVE RECOMMENDATION: Routine annual follow-up in 1 Year A letter with findings and recommendations will be mailed to the patient. Reading Location: [id number] CC: Dr. Ladonna Melton MD ~ Hvac Sales Engineer: Signed [facility] Dexa Bone Density Studyon Dexa Bone Density Study [facility] Imaging Services [address] [place] [address] Dexa Bone Density Study MR#: [id number] Acct: [id number] Name: DEYSI ANAYA Rep #: [id number] : 1970 F 54 From: Nir conteh MD PCP: Dr. Ladonna Melton MD Status: [facility] Study: Dexa Bone Density Study Date of Exam: 02/12/25 Exam# [id number] Ordering Dr: Ladonna Melton MD PROCEDURE: DEXA BONE DENSITY STUDY 02/12/2025 REASON FOR EXAM: F, age 54 y/o . Postmenopausal. TECHNIQUE: DXA scan of sites with data reported below. RE[facility]ENCE LINKS[facility] COMPARISON: None FINDINGS: BMD and T-SCORES Lumbar spine: 1.109 g/cm2, T-score 0.6 Levels: L1 through L4 Left femoral neck: 0.900 g/cm2, T-score 0.5 Femoral neck comparison data not recommended for monitoring change. Left total hip: 1.036 g/cm2, T-score 0.8 Right femoral neck: 0.808 g/cm2, T-score -0.4 Femoral neck comparison data not recommended for monitoring change. Right total hip: 0.949 g/cm2, T-score 0.1 The World Health Organization has defined the following categories based on bone density: Normal bone density: T-score equal to or greater than -1.0 Osteopenia: T-score between -1.0 and -2.5 Osteoporosis: T-score equal to or less than -2.5 The patient does not meet the pharmacological treatment recommendations for prevention of osteoporosis. BD/Dexa Bone Density Study IMPRESSION: NORMAL T-SCORES. Recommend follow-up as clinically warranted. Reading Location: [id number] CC: Dr. Ladonna Melton MD Hvac Sales Engineer: Signed Normal [facility] SCRN MAMM (CAD)W/CHEIKH BILATo n 02-12-2025 SCRN MAMM (CAD)W/CHEIKH BILAT [facility] Imaging Services [address] [place] [address] SCRN MAMM (CAD)W/CHEIKH BILAT MR#: [id number] Acct: [id number] Name: DEYSI ANAYA Rep #: [id number] : 1970 F 54 From: Delores Siegel i, MD PCP: Dr. Ladonna Melton MD Status: REG CLI Study: SCRN MAMM (CAD)W/CHEIKH BILAT Date of Exam: 02/01 10/28 Exam# [id number] Ordering Dr: Ladonna Melton MD EXAM: SCRN MAMM (CAD)W/CHEIKH BILAT DATE: 02/12/2025 CLINICAL HISTORY: F, Age 54 y/o , SCREENING BREAST CANCER RISK ASSESSMENT: Na TECHNIQUE: Bilateral screening digital breast tomosynthesis with 2D and 3D images. Computer aided detection. COMPARISON: Prior exam(s) were compared FINDINGS: TISSUE DENSITY: The breast tissue is heterogenously dense, which may obscure small masses. Bilateral Breast Mammographic Findings: No suspicious masses, calcifications or other abnormalities are identified. BI/SCRN MAMM (CAD)W/CHEIKH BILAT IMPRESSION: OVERALL FINAL ASSESSMENT: BIRADS 1 NEGATIVE RECOMMENDATION: Routine annual follow-up in 1 Year A letter with findings and recommendations will be mailed to the patient. Reading Location: [id number] CC: Dr. Ladonna Melton MD Hvac Sales Engineer: Signed Normal [facility] MR Brain WO and W contrast I Von 06-23-2024 IMPRESSION: Unremarkable contrasted MRI. No enhancing mass or lesion. Hvac Sales Engineer: PSCB Transcribe Date/Time: Jun 23 2024 1:49P Dictated by : MINERVA LILLY MD This examination was interpreted and the report reviewed and electronically signed by: MINERVA LILLY MD on Jun 23 2024 1:55PM [facility] RADIOLOGY * * *Final Report* * * DATE OF EXAM: Jun 23 2024 1:10PM [facility] 0295 - MRI BRAIN WO/W IVCON / PROCEDURE REASON: avm * * * * Physician Interpretation * * * * EXAMINATION: MRI BRAIN WO/W IVCON HISTORY: avm - - - - - [id number] - - avm check up no surgery gre also done - 15ml dotarem - cerebral angiogram from 11/13/2005 demonstrated no evidence of intracranial aneurysm or vascular abnormality. TECHNIQUE: MRI brain routine protocol without and with contrast. M: [id number] MR Contrast: Dotarem Contrast Dose: 15 cc Route of Administration: IV COMPARISON: None. RESULT: Acute Change: No evidence of an acute intracranial process. Hemorrhage: No evidence of prior parenchymal hemorrhage on the susceptibility weighted sequences. Mass Lesion/ Mass Effect: No evidence of an intracranial mass or extra-axial fluid collection. No abnormal intracranial enhancement following contrast administration. No significant mass effect. Chronic Change: The white matter is within normal limits of signal intensity for age. Parenchyma: No significant parenchymal volume loss for age. Ventricles: Normal caliber and morphology. Skull Base: Hypothalamic and pituitary region are grossly normal. Craniocervical junction is normal. No significant marrow replacement process. Vasculature: Major intracranial arteries and dural venous sinuses demonstrate typical flow voids, suggesting patency by spin echo criteria. Other: The paranasal sinuses and mastoid air cells are clear. The orbits and extracranial soft tissues are unremarkable. [facility] RADIOLOGY Provider, Kaya Jules - 06/23/2024 * * *Final Report* * * DATE OF EXAM: Jun 23 2024 1:10PM [facility] 0295 - MRI BRAIN WO/W IVCON / PROCEDURE REASON: avm * * * * Physician Interpretation * * * * EXAMINATION: MRI BRAIN WO/W IVCON HISTORY: avm - - - - - [id number] - - avm check up no surgery gre also done - 15ml dotarem - cerebral angiogram from 11/13/2005 demonstrated no evidence of intracranial aneurysm or vascular abnormality. TECHNIQUE: MRI brain routine protocol without and with contrast. M: [id number] MR Contrast: Dotarem Contrast Dose: 15 cc Route of Administration: IV COMPARISON: None. RESULT: Acute Change: No evidence of an acute intracranial process. Hemorrhage: No evidence of prior parenchymal hemorrhage on the susceptibility weighted sequences. Mass Lesion/ Mass Effect: No evidence of an intracranial mass or extra-axial fluid collection. No abnormal intracranial enhancement following contrast administration. No significant mass effect. Chronic Change: The white matter is within normal limits of signal intensity for age. Parenchyma: No significant parenchymal volume loss for age. Ventricles: Normal caliber and morphology. Skull Base: Hypothalamic and pituitary region are grossly normal. Craniocervical junction is normal. No significant marrow replacement process. Vasculature: Major intracranial arteries and dural venous sinuses demonstrate typical flow voids, suggesting patency by spin echo criteria. Other: The paranasal sinuses and mastoid air cells are clear. The orbits and extracranial soft tissues are unremarkable. IMPRESSION IMPRESSION: Unremarkable contrasted MRI. No enhancing mass or lesion. Hvac Sales Engineer: TERRY Transcribe Date/Time: Jun 23 2024 1:49P Dictated by : MINERVA LILLY MD This examination was interpreted and the report reviewed and electronically signed by: MINERVA LILLY MD on Jun 23 2024 1:55PM EST [facility] Radiology Study observation (narrative) [facility] MR Brain WO and W contrast I VOrdered By: [facility] Provider on 06-23-2024 [facility] MRI BRAIN WO/W IVCONon 06-23 MRI BRAIN WO/W IVCON * * *Final Report* * * DATE OF EXAM: Jun 23 2024 1:10PM [facility] 0295 - MRI BRAIN WO/W IVCON / PROCEDURE REASON: avm * * * * Physician Interpretation * * * * EXAMINATION: MRI BRAIN WO/W IVCON HISTORY: avm - - - - - [id number] - - avm check up no surgery gre also done - 15ml dotarem - cerebral angiogram from 11/13/2005 demonstrated no evidence of intracranial aneurysm or vascular abnormality. TECHNIQUE: MRI brain routine protocol without and with contrast. M: [id number] MR Contrast: Dotarem Contrast Dose: 15 cc Route of Administration: IV COMPARISON: None. RESULT: Acute Change: No evidence of an acute intracranial process. Hemorrhage: No evidence of prior parenchymal hemorrhage on the susceptibility weighted sequences. Mass Lesion/ Mass Effect: No evidence of an intracranial mass or extra-axial fluid collection. No abnormal intracranial enhancement following contrast administration. No significant mass effect. Chronic Change: The white matter is within normal limits of signal intensity for age. Parenchyma: No significant parenchymal volume loss for age. Ventricles: Normal caliber and morphology. Skull Base: Hypothalamic and pituitary region are grossly normal. Craniocervical junction is normal. No significant marrow replacement process. Vasculature: Major intracranial arteries and dural venous sinuses demonstrate typical flow voids, suggesting patency by spin echo criteria. Other: The paranasal sinuses and mastoid air cells are clear. The orbits and extracranial soft tissues are unremarkable. IMPRESSION: Unremarkable contrasted MRI. No enhancing mass or lesion. Hvac Sales Engineer: TERRY Transcribe Date/Time: Jun 23 2024 1:49P Dictated by : MINERVA LILLY MD This examination was interpreted and the report reviewed and electronically signed by: MINERVA LILLY MD on Jun 23 2024 1:55PM EST [id number] Normal [facility] MR HAND W/WO LTon 10-03-2022 MR HAND W/WO LT [address] [address] Patient: DEYSI ANAYA Phone#: : 1970 Age: 52 Gender: F Pt. Type: Out Account: [id number] Location: Ordering: DR. MERLIN AGUDELO Exam Date: 10/03/2022/15:03 Family Phys: DR. ROSI FERNÁNDEZ Charge Code: 282165 Physician: [place] Order #: [id number] Dose#: PROCEDURE: MRI HAND LT WITH AND WITHOUT CONTRAST COMPARISON: None. 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 FINDINGS: BONES: Normal. No arthropathy, bone edema, osteochondral defect, or other bone lesion. JOINTS: There is a mass at the radial side of the 2nd middle phalanx, distal aspect. The 2nd in DIP radial collateral ligament is peripherally displaced, series 10, image 10. The mass is T1 hypointense, T2/STIR heterogeneously hyperintense and demonstrates uniform post contrast enhancement. The mass measures 0.8 x 0.7 x 3 cm. The mass bifurcates with a portion of the mass extending proximally along the radial aspect and a second portion extending proximally along the palmar surface superficial to the flexor digitorum profundus tendon series 12 image 7 and 6 and series 11 image 11. The portion along the flexor tendon measures 0.7 cm in length, series 12 image 6. EFFUSIONS: None. No synovitis or loose bodies. TENDONS: Normal. No visible tendinitis, tear, or tenosynovitis. OTHER: No other significant findings. CONCLUSION: 1. Mass at the level of the 2nd middle phalanx, distal aspect. 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 Dictated by: Rin Granger MD on 10/04/2022 at 12:37 Approved by: Rin Granger MD on 10/04/2022 at 14:47 Normal [facility] Encounters Encounter Date Encounter Type Care Provider Facility Start: 05-07-2025 ambulatory Ladonna Melton Facility:[facility] Start: 02-12-2025 End: 02-12-[address] Ladonna Melton MD Work Phone: [facility] Work Phone: Start: 02-12-2025 End: 02-12-[address] Ladonna Melton MD -Outpatient Bone Densitometry Work Phone: Start: 02-12-2025 End: 02-12-2025 ambulatory Ladonna Melton Facility:[facility] Start: 06-23-2024 ambulatory LADONNA PARK Dieter acility:[phone] Start: 06-23-2024 End: 06-23-2024 Subsequent hospital visit by physician [facility] Work Phone: [facility] Start: 11-21-2022 End: 11-21-2022 ambulatory [facility] Work Phone: Start: 11-21-2022 End: 11-21-2022 Patient encounter procedure [facility]-Outpatient Breast Imaging Start: 10-03-2022 End: 10-03-2022 [facility] Date Procedure Procedure Detail Performing Clinician Start: 02-12-2025 Dual energy X-ray absorptiometry Dr. Ladonna Melton MD Work Phone: Start: 02-12-2025 Screening mammography Layla Melton MD Work Phone: Start: 06-23-2024 Mri brain brain stem w/o w/contrast material Ladonna Park Work Phone: Start: 11-21-2022 Screening mammography Plan of Treatment Date Care Activity Detail Author Start: 05-04-2024 Covid-19 Vaccine ( season) Covid-19 Vaccine () [facility] Start: 05-04-2024 Influenza vaccination Influenza Vacc ine (#1) [facility] Start: 2020 Shingrix Vaccine (1 of 2) [place] grix Vaccine (1 of 2) [facility] Start: 2015 Diabetes Screening Diabetes Screenin g [facility] Start: 2015 Lipid panel Lipid Screening [facility] Start: 2015 Screening for malign ant neoplasm of colon [facility] Start: 2010 Screening for malign ant neoplasm of breast Mammogram Screening [facility] Start: 1991 Screening for malign ant neoplasm of cervix Cervical Cancer Screening [facility] Start: 1989 Hepatitis B Vaccine (1 of 3 - 19+ 3-dose series) Hepatitis B Vaccine (1 of 3 - 19+ 3-dose series) [facility] Start: 1989 Urine microalbumin profile DTa P,Tdap,Td Vaccine (1 - Tdap) [facility] Start: 1988 Anxiety Screening Anxiety Screening [facility] Start: 1988 Depression Screening Depression Scre ening [facility] Start: 1988 Hepatitis C screening Hepatitis C Sc reening [facility] Start: 1988 HIV screening HIV Screening [facility] Immunizations Immunization Date Immunization Notes Care Provider Fa chleo 08-21-2005 influenza virus vacc ine, unspecified formulation Mri [place] Work Phone: [facility] Payers Date Payer Category Payer Unknown [id number] 2025 Private Health Insurance [id number] 2025 Self-pay [id number] 2019 Unknown MMO MMO [employer] PPO [id number] 2019-Present [phone] [address] [place] [address] PPO [id number] 2019 Unknown [id number] 1970 Unknown [id number] Unknown [id number] Unknown [id number] Social History Date Type Detail Facility Start: 06-15-2021 Tobacco smoking stat us NHIS Unknown if ever smoked [facility] Start: 1970 Sex Assigned At Female [facility] Start: 05-02-2015 End: 06-15-2021 Tobacco smoking status NHIS Never smoked tobacco [facility] Start: 08-06-2015 Alcoholic beverage intake Not Asked [facility] Start: 1970 Sex assigned at Not on file [facility] Gender identity Not on file [facility] History of Present illness Narrative 06-23-2024 Parth Keller RT(R) - 06/23/2024 12:45 PM EDT Note Date & Type Note Facility 06-23-2024 History of Presen t illness Narrative Radiology Service Progress Note DATE OF SERVICE: June 23, 2024 TIME: 12:58 PM PATIENT IDENTITY VERIFICATION COMPLETED USING TWO (2) STANDARD IDENTIFIERS: Name and Date of confirmed by patient verbally. FALL SCREENING: Has the patient had 2 falls in the last year or 1 fall with injury or currently using an Ambulatory Assistive Device (Walker, Cane, Wheelchair, Crutches, etc.)? No PATIENT GENDER DATA: Female. status: : No status: NO. PATIENT RELEVANT IMPLANT DATA REVIEWED: Yes PATIENT PRESENTS WITH AN IMPLANTABLE OR ATTACHED PROCESS SPECIALIST: No ALLERGIES: Reviewed and unchanged CONTRAST ALLERGY: NO. EXAM: MRI - CONTRAST TYPE: GROUP II PERIPHERAL IV DATA: Ambulatory: A peripheral IV was started in the Right hand with a Angio cath: 22 gauge. RADIOLOGY DEPARTMENT: MR; Exam(s) Completed: Head: Routine Brain SIGNATURE: RT Binh(R) PATIENT NAME: Deysi Anaya DATE: June 23, 2024 TIME: 12:58 PM documented in this encounter [facility] Progress note 06-23-2024 Note Date & Type Note Facility 06-23-2024 Note HNO ID: [id number] Author: PARTH KELLER RT(R) Service: ? Author Type: Technologist Type: Progress Notes Filed: 06/23/2024 12:59 Note Text: Radiology Service Progress Note DATE OF SERVICE: June 23, 2024 TIME: 12:58 PM PATIENT IDENTITY VERIFICATION COMPLETED USING TWO (2) STANDARD IDENTIFIERS: Name and Date of confirmed by patient verbally. FALL SCREENING: Has the patient had 2 falls in the last year or 1 fall with injury or currently using an Ambulatory Assistive Device (Walker, Cane, Wheelchair, Crutches, etc.)? No PATIENT GENDER DATA: Female. status: : No status: NO. PATIENT RELEVANT IMPLANT DATA REVIEWED: Yes PATIENT PRESENTS WITH AN IMPLANTABLE OR ATTACHED PROCESS SPECIALIST: No ALLERGIES: Reviewed and unchanged CONTRAST ALLERGY: NO. EXAM: MRI - CONTRAST TYPE: GROUP II PERIPHERAL IV DATA: Ambulatory: A peripheral IV was started in the Right hand with a Angio cath: 22 gauge. RADIOLOGY DEPARTMENT: MR; Exam(s) Completed: Head: Routine Brain SIGNATURE: RT Binh(Shani) PATIENT NAME: Deysi Anaya DATE: June 23, 2024 TIME: 12:58 PM [facility] Evaluation note Note Date & Type Note Facility Evaluation note No assessment information availa ble [facility] Work Phone: Reason for referral (narrative) Note Date & Type Note Facility Reason for referral (narrative) No reason for referral information available [facility] Work Phone: Summary Purpose Family History No Family History Records Found Relationship Condition Age at Onset Recorded Date/T emilia Not Specified Chronic obstructive pulmonary disease Un known Malignant neoplasm Unknown Advance Directives No Advanced Directives Records Found Advance Directive Response Recorded Date/ Time Living Will No April 18 9:02am Power of Director Stars No April 18 021 9:02am Chief Complaint and Reason for Visit Chief Complaint SCREENING Chief Complaint Admit Date SCREENING February 12, 2025 2:57 pm Additional Source Comments INFORMATION SOURCE (unrecogn ized section and content) DATE CREATED AUTHOR 10/05/2022 Odell Crook [facility] DATE CREATED AUTHOR AUTHOR'S ORGANIZ ATION 06/25/2024 [facility] nt DATE CREATED AUTHOR AUTHOR'S ORGANIZ ATION 05/10/2025 [facility] Care Teams (unrecognized sec tion and content) Team Status: Active Member Role Status Dates Dr. Ladonna Melton MD Family Provider Active Dr. Ladonna Melton MD Primary Care Provider Active Team Status: Inactive Member Role Status Dates Dr. Ladonna Melton MD Primary Care Provid er, Attending Provider, Referring Provider Active Escrow Manager Relationship Specialty Start Date End Date Ladonna Melton [facility] [address] [place] [id number] PCP - General Pulmonary and Critical Care Medicine 06/23/24 Team Status: Active Member Role Status Dates Dr. Ladonna Melton MD Primary Care Provider Active Team Status: Inactive Member Role Status Dates Dr. Ladonna Melton MD Primary Care Provider Active Start: February 12, 2025 End: February 12, 2025 Dr. Ladonna Melton MD Attending Provider Active S tart: February 12, 2025 End: February 12, 2025 Dr. Ladonna Melton MD Referring Provider Active S tart: February 12, 2025 End: February 12, 2025 Goals (unrecognized section and content) Goals may be documented in a n alternate sectionGoals may be documented in an alternate section Source Comments (unrecognize d section and content) In the event this informatio n is protected by the Federal Confidentiality of Alcohol and Drug Abuse Patient Records regulations: The Federal rules restrict any use of the information to criminally investigate or prosecute any alcohol or drug abuse patient.[facility] Reason for Visit (unrecogniz ed section and content) Specialty Diagnoses / Procedures Referred By Contac t Referred To Contact Radiology / RADIO MRI MAIN A10 Diagnoses MRI BRAIN WWO IVCON [id number] LADONNA MELTON ORDER IN SCANNED DOCS Procedures MRI BRAIN BRAIN STEM W/O W/CONTRAST MATERIAL MRI WWO NEU1 B 300 Ladonna Mckinnon [address] [place] [address] Radio [facility] Main A[address] [address] Referral ID Status Reason Start Date Expiration Date Visits Re quested Visits Authorized [id number] Closed 06/04/2024 09/02/2024 1 1 FOR RECORDS PERTAINING TO PATIENTS WHO ARE OR HAVE BEEN ENROLLED IN A CHEMICAL DEPENDENCY/SUBSTANCEABUSE PROGRAM, SOME INFORMATION MAY BE OMITTED. This clinical summary was aggregated from multiple sources. Caution should be exercised in using it in the provision of clinical care. This summary normalizes information from multiple sources, and as a consequence, information in this document may materially change the coding, format and clinical context of patient data. In addition, data may be omitted in some cases. CLINICAL DECISIONS SHOULD BE BASED ON THE PRIMARY CLINICAL RECORDS. [facility]. provides no warranty or guarantee of the accuracy or completeness of information in this document.
[2025-05-12 04:07] LABS: Carcinoembryonic Antigen 1.4 ng/mL (0.0-4.7)
== END | disposition home or self-care (01) ==
LOC: LAB 11:36
PROVIDERS: PCP Obstetrics & Gynecology Gynecology; Referring Provider Internal Medicine Gastroenterology; Visit Provider Obstetrics & Gynecology Gynecology
DX: K92.1 Melena (principal)
CPT/HCPCS: 36415; 80053; 82150; 82378; 83690; 85025